=== PATIENT | male | born 1990 | race Caucasian/White ===

== ENCOUNTER 2017-12-01 12:37 | Emergency (ER) | payer BC, OTHER ==
[~2017-12-01] VITALS: Ht 167.6 cm; Wt 50.0 kg
[2017-12-01 12:41] VITALS: BP 146/92; PULSE 116; RESP 20; TEMP 98.7; O2SAT 99
[2017-12-01] MEDS ORDERED: HUMI40KI SQ (12:52)
[2017-12-01] MEDS ORDERED: METH2.5T PO (12:52)
[2017-12-01] MEDS ORDERED: LORazepam 1 MG TAB PO ONE (13:30)
--- NOTE | 2017-12-01 13:37 | PD ---
HPI Chief Complaint: Anxiety Time Seen by Provider: 13:01 Travel History International Travel<30 days: No Contact w/Intl Traveler<30days: No Traveled to known affect area: No History of Present Illness HPI This patient complains of having a reaction to Humira. He took it yesterday at 10:00 PM for the first time ever. He has history of autoimmune arthritis. He is also on methotrexate. He did okay during the night but this morning became very anxious. He felt like he developed some warm sensation and cramping in his right upper quadrant. His liver function checked. He is a pharmacist. He is not having chest pain or short of breath. He is very anxious appearing. He took the ambulance to the emergency room. Duration 6 hours. No alleviating factors. No exacerbating factors. PFSH Past Medical History Arthritis: Yes (autoimmune arthritis) Tetanus Vaccination: > 5 Years Influenza Vaccination: No Social History Alcohol Use: No Tobacco Use: No Allergies-Medications (Allergen,Severity, Reaction): Coded Allergies: No Known Allergies (Unverified , 12/01/17) Reported Meds & Prescriptions Reported Meds & Active Scripts Active Reported Humira 2-Pack Inj (Adalimumab 2-Pack Inj) 40 Mg/0.8 Ml Syr 40 Mg SQ Q2 WEEKS Methotrexate 2.5 Mg Tab 20 Mg PO Q7D Review of Systems General / Constitutional: No: Fever Eyes: No: Visual changes HENT: No: Headaches Cardiovascular: No: Chest Pain or Discomfort Respiratory: No: Shortness of Breath Gastrointestinal: Positive: Abdominal Pain Genitourinary: No: Dysuria Musculoskeletal: No: Pain Skin: No Rash Neurologic: No: Weakness Psychiatric: Positive: Anxiety, No: Depression Endocrine: No: Polydipsia Hematologic/Lymphatic: No: Easy Bruising Physical Exam Narrative GENERAL: Well-nourished, well-developed patient in no apparent distress. SKIN: Focused skin assessment reveals fine papular rash on the forehead and cheeks and chin which is chronic per patient . Skin is Warm and dry. HEAD: Atraumatic. Normocephalic. EYES: Pupils equal and round. No scleral icterus. No injection or drainage. ENT: No nasal bleeding or discharge. Mucous membranes pink and moist. NECK: Trachea midline. No JVD. CARDIOVASCULAR: Regular rate and rhythm. No murmur appreciated. RESPIRATORY: No accessory muscle use. Clear to auscultation. Breath sounds equal bilaterally. GASTROINTESTINAL: Abdomen soft, non-tender, nondistended. Hepatic and splenic margins not palpable. MUSCULOSKELETAL: No obvious deformities. No clubbing. No cyanosis. No edema. NEUROLOGICAL: Awake and alert. No obvious cranial nerve deficits. Motor grossly within normal limits. Normal speech. PSYCHIATRIC: Anxious mood and affect; insight and judgment normal. Data Data Last Documented VS Vital Signs Date Time Temp Pulse Resp B/P (MAP) Pulse Ox O2 Delivery O2 Flow Rate FiO2 12/01/17 14:35 112 17 147/89 (108) 98 Room Air 12/01/17 12:41 98.7 Orders Orders Iv Access Insert/Monitor (12/01/17 13:23) Complete Blood Count With Diff (12/01/17 13:23) Comprehensive Metabolic Panel (12/01/17 13:23) Lipase (12/01/17 13:23) [facility] Expert / Telemetry EZE.Q8H (12/01/17 13:23) Lorazepam (Ativan) (12/01/17 13:30) Electrocardiogram (12/01/17 12:40) Labs Laboratory Tests Test 12/01/17 13:40 White Blood Count 7.8 TH/MM3 Red Blood Count 4.81 MIL/MM3 Hemoglobin 13.6 GM/DL Hematocrit 42.1 % Mean Corpuscular Volume 87.5 FL Mean Corpuscular Hemoglobin 28.2 PG Mean Corpuscular Hemoglobin Concent 32.2 % Red Cell Distribution Width 14.2 % Platelet Count 235 TH/MM3 Mean Platelet Volume 8.2 FL Neutrophils (%) (Auto) 86.4 % Lymphocytes (%) (Auto) 7.0 % Monocytes (%) (Auto) 6.2 % Eosinophils (%) (Auto) 0.0 % Basophils (%) (Auto) 0.4 % Neutrophils # (Auto) 6.8 TH/MM3 Lymphocytes # (Auto) 0.5 TH/MM3 Monocytes # (Auto) 0.5 TH/MM3 Eosinophils # (Auto) 0.0 TH/MM3 Basophils # (Auto) 0.0 TH/MM3 CBC Comment DIFF FINAL Differential Comment Blood Urea Nitrogen 6 MG/DL Creatinine 0.70 MG/DL Random Glucose 138 MG/DL Total Protein 7.8 GM/DL Albumin 3.9 GM/DL Calcium Level 9.4 MG/DL Alkaline Phosphatase 77 U/L Aspartate Amino Transf (AST/SGOT) 21 U/L Alanine Aminotransferase (ALT/SGPT) 24 U/L Total Bilirubin 0.6 MG/DL Sodium Level 135 MEQ/L Potassium Level 3.3 MEQ/L Chloride Level 101 MEQ/L Carbon Dioxide Level 24.9 MEQ/L Anion Gap 9 MEQ/L Estimat Glomerular Filtration Rate 134 ML/MIN Lipase 136 U/L MDM Medical Decision Making Medical Screen Exam Complete: Yes Emergency Medical Condition: Yes Medical Record Reviewed: Yes Differential Diagnosis Medication side effect, anxiety, hepatitis Narrative Course I have reviewed the patient's electronic medical record. I've ordered telemetry monitoring and lab workup and gave him a dose of Ativan EKG shows sinus tachycardia without ectopy CBC and LFTs are normal Metabolic profile reveals minimal electrolyte abnormalities On recheck he looks improved Stable for outpatient follow-up He should discuss his side effects and concerns with his prescribing physician Diagnosis Primary Impression: Side effect of medication Additional Impression: Anxiety about health Additional Instructions: The patient was advised to follow up with their physician and return if they worsen. Med/Other Pt SpecificInfo: Other Disposition: 01 DISCHARGE HOME Condition: Stable Arya West MD Dec 01, 2017 13:37
[2017-12-01 13:54] LABS: AUTOMATED NEUTROPHIL # 6.8 TH/MM3 (1.8-7.7); BASOPHIL % 0.4 % (0.0-2.0); HEMATOCRIT 42.1 % (39.0-51.0); HEMOGLOBIN 13.6 GM/DL (13.0-17.0); LYMPHOCYTE # 0.5 TH/MM3 (1.0-4.8); MEAN CELL VOLUME 87.5 FL (80.0-100.0); MEAN CORPUSCULAR HEMOGLOBIN 28.2 PG (27.0-34.0); MEAN CORPUSCULAR HGB CONC 32.2 % (32.0-36.0); MEAN PLATELET VOLUME 8.2 FL (7.0-11.0); MONO % 6.2 % (0.0-8.0); MONOCYTE # 0.5 TH/MM3 (0-0.9); NEUT % 86.4 % (16.0-70.0); PLATELET COUNT 235 TH/MM3 (150-450); RED BLOOD COUNT 4.81 MIL/MM3 (4.50-5.90); RED CELL DISTRIBUTION WIDTH 14.2 % (11.6-17.2); WHITE BLOOD COUNT 7.8 TH/MM3 (4.0-11.0)
[2017-12-01 14:00] LABS: CHLORIDE 101 MEQ/L (98-107); SODIUM (NA) 135 MEQ/L (136-145)
[2017-12-01 14:02] VITALS: PULSE 97
[2017-12-01 14:04] LABS: ALBUMIN 3.9 GM/DL (3.4-5.0); BICARBONATE 24.9 MEQ/L (21.0-32.0); CALCIUM 9.4 MG/DL (8.5-10.1)
[2017-12-01 14:05] LABS: BLOOD UREA NITROGEN 6 MG/DL (7-18); GLUCOSE,RANDOM 138 MG/DL (74-106)
[2017-12-01 14:07] LABS: ALT (GPT) 24 U/L (12-78); AST (GOT) 21 U/L (15-37); GLOMERULAR FILTRATION RATE 134 ML/MIN (>89)
[2017-12-01 14:09] LABS: TOTAL BILIRUBIN ADULT 0.6 MG/DL (0.2-1.0); TOTAL PROTEIN 7.8 GM/DL (6.4-8.2)
[2017-12-01 14:10] LABS: ALKALINE PHOSPHATASE 77 U/L (45-117)
[2017-12-01 14:35] VITALS: BP 147/89; PULSE 112; RESP 17; O2SAT 98
[2017-12-01 15:54] VITALS: BP 142/82
--- NOTE | 2017-12-02 20:26 | EKG ---
Date Performed: 12/01/2017 Time Performed: 12:40:32 PTAGE: 27 years EKG: SINUS TACHYCARDIA POSSIBLE RIGHT VENTRICULAR CONDUCTION DELAY ABNORMAL RHYTHM ECG NO PREVIOUS TRACING DOCTOR: Tatiana Lange Interpretating Date/Time 12/02/2017 20:25:05
== END 2017-12-01 15:56 | disposition home or self-care (01) ==
LOC: PHED 12:37
DX: F41.9 Anxiety disorder, unspecified (principal); T39.4X5A Adverse effect of antirheumatics, not elsewhere classified, initial encounter; R94.31 Abnormal electrocardiogram [ECG] [EKG]
CPT/HCPCS: 80053; 83690; 85025; 93005; 99284